=== PATIENT | male | born 1945 | race Caucasian/White ===

== ENCOUNTER 2022-02-08 09:25 | Emergency (ER) | payer MEDICARE, OTHER ==
[~2022-02-08 09:25] MED LIST: Rocuronium Bromide 10 MG/ML (10ML VIAL) ONE
[2022-02-08] MEDS ORDERED: levETIRAcetam 500 MG/5 ML VIAL ONE (09:30)
[2022-02-08] MEDS ORDERED: Lorazepam 2 MG/ML VIAL ONE (09:30)
[2022-02-08] MEDS ORDERED: Midazolam HCl 10 mg/2 ml Vial ONE (09:33)
[2022-02-08] MEDS ORDERED: Iopamidol 300 61% 100 ML VIAL FS ONE (09:36)
[2022-02-08] MEDS ORDERED: Dexamethasone 10 MG/ML VIAL ONE (09:45)
[2022-02-08] MEDS ORDERED: Midazolam In 0.9 % NaCl/PF 100 ML IVPB SCH (10:00)
[2022-02-08] MEDS ORDERED: Fosphenytoin Sodium 2,000 MG in Sodium Chloride 0.9% 100 ML IVPB SCH (10:00)
[2022-02-08 10:05] LABS: #Basophils 0.1 10x3/uL (0.0-0.2); #Eosinphils 0.2 10x3/uL (0.0-0.5); #Neutrophils 6.3 10x3/uL (1.5-8.4); %Basophils 0.5 % (0.0-2.0); %Eosinophils 1.4 % (0.0-6.0); %Lymphocytes 36.7 % (18.0-47.0); %Monocytes 8.3 % (0.0-10.0); %Neutrophils 52.4 % (40.0-75.0); Hemoglobin 14.3 g/dL (13.5-17.5); Mean Corpuscular Hemoglobin 30.3 pg (27.0-33.0); Mean Corpuscular Volume 91.7 fl (81.2-95.1); Mean Platelet Volume 11.2 fl (7.4-10.4); Platelet Count 256 10x3/uL (150-450); RBC Distribution Width 12.4 % (11.5-14.5); Red Blood Cell (RBC) Count 4.72 10x6/uL (4.32-5.72); White Blood Cell (WBC) Count 12.1 10x3/uL (3.5-10.5)
[2022-02-08 10:15] LABS: ALT (SGPT) 40 U/L (8-55); AST (SGOT) 21 U/L (5-34); Albumin 4.4 g/dL (3.4-4.8); Alkaline Phosphatase 82 U/L (40-110); Anion Gap 26 mmol/L (10-20); BUN (Urea Nitrogen) 12 mg/dL (8.4-25.7); Calc. Creatinine Clearance 0 mL/min (70-130); Calcium 9.1 mg/dL (7.8-10.44); Carbon Dioxide 11 mmol/L (23-31); Chloride 109 mmol/L (98-107); Estimated GFR 76; Globulin 2.4 g/dL (2.4-3.5); Glucose 244 mg/dL (83-110); Potassium 4.2 mmol/L (3.5-5.1); Protein, Total 6.8 g/dL (5.8-8.1); Sodium 142 mmol/L (136-145)
[2022-02-08] MEDS ORDERED: NOREPINEPHRINE 8 MG/250 ML-D5W 250 ML ONE (10:47)
[2022-02-08 10:51] LABS: Lipase 35 U/L (8-78)
[2022-02-08 10:52] LABS: Actual Bicarbonate (HCO3a) 14.7 mEq/L (22-28); CO2 Tension 40.4 mmHg (35.0-45.0); Calcium, Ionized (arterial) 1.22 mmol/L (1.12-1.30); Carboxyhemoglobin (COHb) 0.3 gm% (0.0-3.0); Hemoglobin (Hb) 13.8 g/dL (14.0-18.0); O2 Tension (PaO2), arterial 170.2 mmHg (> 70.0); Potassium - ABG Lab 4.2 mmol/L (3.70-5.30); Puncture Site RBA; pH, Arterial 7.18 (7.35-7.45)
[2022-02-08] MEDS ORDERED: Propofol 1,000 MG/100 ML VIAL IV ONE ×2 (11:07→13:33)
[2022-02-08 11:30] LABS: Bilirubin Neg (Negative); Blood, Urine 50 (Negative); Clarity Clear (Clear); Glucose, Urine (Dipstick) 100 mg/dL (Negative); Ketone, Urine 5 mg/dL (Negative); Leukocyte Negative (Negative); Nitrite Negative (Negative); Protein, Urine (Dipstick) 30 mg/dl (Neg-Trace); Urobilinogen Normal mg/dL (Less than 2)
[2022-02-08 11:38] LABS: Amphetamine Not Detected (NotDetected); Barbiturates Screen Not Detected (NotDetected); Benzodiazepine Screen Not Detected (NotDetected); Cocaine Metabolite Screen Not Detected (NotDetected); Methadone Not Detected (NotDetected); Methamphetamine Not Detected (NotDetected); Opiate Screen Not Detected (NotDetected); Oxycodone Screen Not Detected (NotDetected); Phencyclidine (PCP) Not Detected (NotDetected); THC/Cannabinoid Screen Not Detected (NotDetected); Tricyclic Screen Not Detected (NotDetected)
[2022-02-08 11:40] LABS: Bacteria/HPF None Seen HPF (None Seen); RBC/HPF 0-3 HPF (0-3); Squamous Epithelial 0-3 HPF (0-3); WBC/HPF None Seen HPF (0-3)
[2022-02-08 11:57] LABS: SARS-CoV-2 NAA Rapid Test Not Detected (NotDetected)
== END 2022-02-08 13:59 | disposition short-term general hospital (02) ==
LOC: CSHERS 09:25
DX: G40.911 Epilepsy, unspecified, intractable, with status epilepticus (principal); G93.89 Other specified disorders of brain; Z20.822 Contact with and (suspected) exposure to COVID-19; E78.5 Hyperlipidemia, unspecified; I10 Essential (primary) hypertension
CPT/HCPCS: 31500; 36556; 36600; 51702; 70450; 70496; 70498; 71045; 80306; 82805; 82962; 83605; 83690; 83735; 83880; 84484; 93005; 94002; 94760; 96361; 96365; 96366; 96367; 96374; 96375; 99285; J1953; U0002; 36416; 80053; 81003; 81015; 84443; 85025; J1100; J2060; J2250; J2704; J3490; Q2009; Q9967

== ENCOUNTER 2022-02-22 17:20 | Emergency (ER) | payer MEDICARE ==
[2022-02-22 18:18] LABS: #Monocytes 0.7 10x3/uL (0.0-1.1); #Neutrophils 12.2 10x3/uL (1.5-8.4); %Basophils 0.1 % (0.0-2.0); %Eosinophils 0.1 % (0.0-6.0); %Lymphocytes 8.6 % (18.0-47.0); %Monocytes 4.6 % (0.0-10.0); Hemoglobin 13.8 g/dL (13.5-17.5); Mean Corpuscular HGB CONC 34.2 g/dL (32.0-36.0); Mean Corpuscular Hemoglobin 29.8 pg (27.0-33.0); Mean Platelet Volume 11.6 fl (7.4-10.4); Platelet Count 268 10x3/uL (150-450); RBC Distribution Width 12.6 % (11.5-14.5); Red Blood Cell (RBC) Count 4.63 10x6/uL (4.32-5.72); White Blood Cell (WBC) Count 14.2 10x3/uL (3.5-10.5)
[2022-02-22 18:28] LABS: ALT (SGPT) 50 U/L (8-55); AST (SGOT) 24 U/L (5-34); Alkaline Phosphatase 83 U/L (40-110); Anion Gap 15 mmol/L (10-20); BUN (Urea Nitrogen) 14 mg/dL (8.4-25.7); Bilirubin, Total 0.4 mg/dL (0.2-1.2); Calc. Creatinine Clearance 0 mL/min (70-130); Calcium 9.4 mg/dL (7.8-10.44); Carbon Dioxide 22 mmol/L (23-31); Chloride 105 mmol/L (98-107); Estimated GFR 93; Globulin 2.5 g/dL (2.4-3.5); Glucose 250 mg/dL (83-110); Potassium 3.6 mmol/L (3.5-5.1); Protein, Total 6.5 g/dL (5.8-8.1); Sodium 138 mmol/L (136-145)
[2022-02-22] MEDS ORDERED: SODIUM CHLORIDE IVPB SCH (20:30)
[2022-02-22] MEDS ORDERED: ADMIXTURE FEE IVPB SCH (20:30)
[2022-02-22] MEDS ORDERED: LEVETIRACETAM IVPB SCH (20:30)
== END 2022-02-22 21:28 | disposition home or self-care (01) ==
LOC: CSHERS 17:20
DX: G40.89 Other seizures (principal); E78.5 Hyperlipidemia, unspecified; I10 Essential (primary) hypertension
CPT/HCPCS: 70450; 80053; 82962; 85025; J1953; 36416; 96365

== ENCOUNTER 2022-03-16 15:54 | Emergency (ER) | payer MEDICARE ==
[2022-03-16] MEDS ORDERED: Lorazepam 2 MG/ML VIAL ONE (16:20)
[2022-03-16 16:53] LABS: #Eosinphils 0.1 10x3/uL (0.0-0.5); #Monocytes 0.3 10x3/uL (0.0-1.1); #Neutrophils 4.9 10x3/uL (1.5-8.4); %Basophils 0.5 % (0.0-2.0); %Eosinophils 1.4 % (0.0-6.0); %Lymphocytes 18.9 % (18.0-47.0); %Neutrophils 73.9 % (40.0-75.0); Mean Corpuscular HGB CONC 35.2 g/dL (32.0-36.0); Mean Corpuscular Hemoglobin 30.6 pg (27.0-33.0); Mean Corpuscular Volume 86.8 fl (81.2-95.1); Mean Platelet Volume 10.7 fl (7.4-10.4); Platelet Count 186 10x3/uL (150-450); RBC Distribution Width 12.1 % (11.5-14.5); Red Blood Cell (RBC) Count 4.25 10x6/uL (4.32-5.72); White Blood Cell (WBC) Count 6.6 10x3/uL (3.5-10.5)
[2022-03-16] MEDS ORDERED: Fosphenytoin Sodium 1,500 MG in Sodium Chloride 0.9% 100 ML IVPB SCH (17:00)
[2022-03-16 17:06] LABS: ALT (SGPT) 49 U/L (8-55); AST (SGOT) 26 U/L (5-34); Albumin 3.7 g/dL (3.4-4.8); Alkaline Phosphatase 84 U/L (40-110); Anion Gap 12 mmol/L (10-20); BUN (Urea Nitrogen) 12 mg/dL (8.4-25.7); Bilirubin, Total 0.6 mg/dL (0.2-1.2); CK (CPK) 20 U/L (30-200); Calc. Creatinine Clearance 0 mL/min (70-130); Carbon Dioxide 23 mmol/L (23-31); Chloride 110 mmol/L (98-107); Estimated GFR 89; Globulin 2.2 g/dL (2.4-3.5); Glucose 211 mg/dL (83-110); Potassium 3.7 mmol/L (3.5-5.1); Protein, Total 5.9 g/dL (5.8-8.1); Sodium 141 mmol/L (136-145)
== END 2022-03-16 18:45 | disposition home or self-care (01) ==
LOC: CSHERS 15:54
DX: G40.109 Localization-related (focal) (partial) symptomatic epilepsy and epileptic syndromes with simple partial seizures, not intractable, without status epilepticus (principal); E78.5 Hyperlipidemia, unspecified; I10 Essential (primary) hypertension
CPT/HCPCS: 80053; 82550; 85025; 96365; 96375; J2060; J3490; Q2009

== ENCOUNTER 2022-03-27 08:24 | Emergency (ER) | payer MEDICARE ==
[2022-03-27 09:30] LABS: #Monocytes 0.4 10x3/uL (0.0-1.1); #Neutrophils 3.8 10x3/uL (1.5-8.4); %Basophils 0.4 % (0.0-2.0); %Eosinophils 0.7 % (0.0-6.0); %Lymphocytes 21.5 % (18.0-47.0); %Monocytes 6.9 % (0.0-10.0); %Neutrophils 70.1 % (40.0-75.0); Hemoglobin 13.3 g/dL (13.5-17.5); Mean Corpuscular HGB CONC 33.4 g/dL (32.0-36.0); Mean Corpuscular Hemoglobin 29.4 pg (27.0-33.0); Mean Corpuscular Volume 88.1 fl (81.2-95.1); Mean Platelet Volume 10.2 fl (7.4-10.4); Platelet Count 224 10x3/uL (150-450); RBC Distribution Width 12.5 % (11.5-14.5); Red Blood Cell (RBC) Count 4.52 10x6/uL (4.32-5.72); White Blood Cell (WBC) Count 5.5 10x3/uL (3.5-10.5)
[2022-03-27 09:37] LABS: ALT (SGPT) 95 U/L (8-55); AST (SGOT) 36 U/L (5-34); Albumin 3.7 g/dL (3.4-4.8); Alkaline Phosphatase 89 U/L (40-110); Anion Gap 12 mmol/L (10-20); BUN (Urea Nitrogen) 10 mg/dL (8.4-25.7); Bilirubin, Total 0.3 mg/dL (0.2-1.2); Calc. Creatinine Clearance 0 mL/min (70-130); Calcium 9.1 mg/dL (7.8-10.44); Carbon Dioxide 23 mmol/L (23-31); Chloride 110 mmol/L (98-107); Estimated GFR 94; Globulin 2.2 g/dL (2.4-3.5); Glucose 132 mg/dL (83-110); Protein, Total 5.9 g/dL (5.8-8.1); Sodium 141 mmol/L (136-145)
== END 2022-03-27 10:00 | disposition home or self-care (01) ==
LOC: CSHERS 08:24
DX: R56.9 Unspecified convulsions (principal); E78.5 Hyperlipidemia, unspecified; I10 Essential (primary) hypertension
CPT/HCPCS: 80053; 80177; 85025; 99285

== ENCOUNTER 2022-04-20 21:05 | Emergency (ER) | payer MEDICARE | END 2022-04-20 23:10 | disposition home or self-care (01) | LOC: CSHERS 21:05 | DX: R56.9 Unspecified convulsions (principal); I10 Essential (primary) hypertension; E78.5 Hyperlipidemia, unspecified | CPT/HCPCS: 93005; 99284 ==

== ENCOUNTER 2022-05-01 18:55 | Emergency (ER) | payer MEDICARE ==
[2022-05-01 20:18] LABS: Bilirubin Neg (Negative); Blood, Urine 25 (Negative); Clarity Clear (Clear); Glucose, Urine (Dipstick) >=1000 mg/dL (Negative); Ketone, Urine Negative (Negative); Leukocyte Negative (Negative); Nitrite Negative (Negative); Protein, Urine (Dipstick) Negative (Neg-Trace); Specific Gravity, Urine 1.015 (1.005-1.030); Urobilinogen Normal mg/dL (Less than 2); pH, Urine 6.5 (5.0-9.0)
[2022-05-01 20:32] LABS: Bacteria/HPF Rare-Few HPF (None Seen); RBC/HPF 0-3 HPF (0-3); Squamous Epithelial None Seen HPF (0-3); WBC/HPF 0-3 HPF (0-3)
[2022-05-01 20:46] LABS: #Monocytes 0.5 10x3/uL (0.0-1.1); #Neutrophils 6.7 10x3/uL (1.5-8.4); %Basophils 0.1 % (0.0-2.0); %Eosinophils 0.1 % (0.0-6.0); %Lymphocytes 12.5 % (18.0-47.0); %Monocytes 5.8 % (0.0-10.0); %Neutrophils 81.1 % (40.0-75.0); Hemoglobin 14.3 g/dL (13.5-17.5); Mean Corpuscular HGB CONC 33.1 g/dL (32.0-36.0); Mean Corpuscular Hemoglobin 29.9 pg (27.0-33.0); Mean Corpuscular Volume 90.4 fl (81.2-95.1); Mean Platelet Volume 10.6 fl (7.4-10.4); Platelet Count 228 10x3/uL (150-450); RBC Distribution Width 12.9 % (11.5-14.5); Red Blood Cell (RBC) Count 4.78 10x6/uL (4.32-5.72); White Blood Cell (WBC) Count 8.3 10x3/uL (3.5-10.5)
[2022-05-01 21:03] LABS: ALT (SGPT) 55 U/L (8-55); AST (SGOT) 20 U/L (5-34); Albumin 4.5 g/dL (3.4-4.8); Alkaline Phosphatase 87 U/L (40-110); Anion Gap 16 mmol/L (10-20); BUN (Urea Nitrogen) 16 mg/dL (8.4-25.7); Bilirubin, Total 0.3 mg/dL (0.2-1.2); Calc. Creatinine Clearance 0 mL/min (70-130); Calcium 9.9 mg/dL (7.8-10.44); Carbon Dioxide 23 mmol/L (23-31); Chloride 102 mmol/L (98-107); Estimated GFR 90; Globulin 2.4 g/dL (2.4-3.5); Glucose 327 mg/dL (83-110); Potassium 4.7 mmol/L (3.5-5.1); Protein, Total 6.9 g/dL (5.8-8.1); Sodium 136 mmol/L (136-145)
[2022-05-01 23:37] LABS: Lactic Acid 1.5 mmol/L (0.5-2.2)
== END 2022-05-01 23:59 | disposition home or self-care (01) ==
LOC: CSHERS 18:55
DX: R53.1 Weakness (principal); R53.81 Other malaise; E78.5 Hyperlipidemia, unspecified; I12.9 Hypertensive chronic kidney disease with stage 1 through stage 4 chronic kidney disease, or unspecified chronic kidney disease; N18.4 Chronic kidney disease, stage 4 (severe); Z79.84 Long term (current) use of oral hypoglycemic drugs; Z79.899 Other long term (current) drug therapy; Z79.01 Long term (current) use of anticoagulants
CPT/HCPCS: 36415; 71045; 80053; 81003; 81015; 83605; 84484; 85025; 93005; 96360; 96361

== ENCOUNTER 2022-07-28 14:34 | Emergency (ER) | payer MEDICARE ==
[2022-07-28 15:35] LABS: #Monocytes 0.2 10x3/uL (0.0-1.1); #Neutrophils 7.4 10x3/uL (1.5-8.4); %Basophils 0.2 % (0.0-2.0); %Lymphocytes 7.1 % (18.0-47.0); %Monocytes 2.6 % (0.0-10.0); %Neutrophils 89.4 % (40.0-75.0); ALT (SGPT) 30 U/L (8-55); AST (SGOT) 23 U/L (5-34); Albumin 4.1 g/dL (3.4-4.8); Alkaline Phosphatase 86 U/L (40-110); Anion Gap 17 mmol/L (10-20); BUN (Urea Nitrogen) 10 mg/dL (8.4-25.7); Bilirubin, Total 0.4 mg/dL (0.2-1.2); Calc. Creatinine Clearance 0 mL/min (70-130); Calcium 9.3 mg/dL (7.8-10.44); Carbon Dioxide 21 mmol/L (23-31); Chloride 103 mmol/L (98-107); Estimated GFR 90; Globulin 2.5 g/dL (2.4-3.5); Glucose 277 mg/dL (83-110); Hemoglobin 13.9 g/dL (13.5-17.5); Mean Corpuscular HGB CONC 33.5 g/dL (32.0-36.0); Mean Corpuscular Hemoglobin 31.1 pg (27.0-33.0); Mean Corpuscular Volume 92.8 fl (81.2-95.1); Mean Platelet Volume 10.8 fl (7.4-10.4); Platelet Count 211 10x3/uL (150-450); Potassium 4.5 mmol/L (3.5-5.1); Protein, Total 6.6 g/dL (5.8-8.1); RBC Distribution Width 13.2 % (11.5-14.5); Red Blood Cell (RBC) Count 4.47 10x6/uL (4.32-5.72); Sodium 136 mmol/L (136-145); White Blood Cell (WBC) Count 8.3 10x3/uL (3.5-10.5)
== END 2022-07-28 16:27 | disposition home or self-care (01) ==
LOC: CSHERS 14:34
DX: S09.90XA Unspecified injury of head, initial encounter (principal); S80.212A Abrasion, left knee, initial encounter; S80.211A Abrasion, right knee, initial encounter; I10 Essential (primary) hypertension; E78.5 Hyperlipidemia, unspecified; W18.30XA Fall on same level, unspecified, initial encounter; Z79.84 Long term (current) use of oral hypoglycemic drugs; Z79.899 Other long term (current) drug therapy; Z79.01 Long term (current) use of anticoagulants
CPT/HCPCS: 36416; 70450; 71045; 80053; 85025; 93005